=== PATIENT | male | born 1960 | race Two or more races ===

== ENCOUNTER 2021-12-26 23:15 | Emergency (ER) | payer OTHER ==
[~2021-12-26] VITALS: Ht 188 cm; Wt 82.0 kg
[2021-12-26 23:17] VITALS: BP 149/85
== END 2021-12-27 01:10 | disposition home or self-care (01) ==
LOC: ER 23:15
DX: F10.10 Alcohol abuse, uncomplicated (principal); Y90.9 Presence of alcohol in blood, level not specified
CPT/HCPCS: 82962; 99283